=== PATIENT | male | born 1950 | race Caucasian/White ===

== ENCOUNTER 2016-11-22 11:12 | Emergency (ER) | payer OTHER ==
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
[2016-11-22 11:25] VITALS: RESP 18; TEMP 98.2
[2016-11-22 12:46] VITALS: PULSE 87
[2016-11-22 15:06] VITALS: BP 139/89; O2SAT 94
== END 2016-11-22 15:07 | disposition home or self-care (01) ==
LOC: EDUNIT#
PROC: 0HQ1XZZ Repair Face Skin, External Approach (ICD-10-PCS; principal; 2016-11-22)
DX: S02.40EA Zygomatic fracture, right side, initial encounter for closed fracture (principal); S02.401A Maxillary fracture, unspecified side, initial encounter for closed fracture; S02.31XA Fracture of orbital floor, right side, initial encounter for closed fracture; F17.200 Nicotine dependence, unspecified, uncomplicated; S62.632A Displaced fracture of distal phalanx of right middle finger, initial encounter for closed fracture; S01.111A Laceration without foreign body of right eyelid and periocular area, initial encounter; V19.40XA Pedal cycle driver injured in collision with unspecified motor vehicles in traffic accident, initial encounter; Y92.410 Unspecified street and highway as the place of occurrence of the external cause; Y99.8 Other external cause status; Y93.55 Activity, bike riding
CPT/HCPCS: 12011; 70450; 72125; 73030; 73130; 99285; L3908; L3925

== ENCOUNTER 2016-11-28 18:55 | Inpatient (IN) | payer OTHER, MEDICAID ==
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
[2016-11-28 19:22] LABS: % IMMATURE GRANULYOCYTES 0.3 % (0.0-1.1); ABSOLUTE IMMATURE GRANULOCYTES 0.02 10^3/uL (0.00-0.10); ADD DIFF? NO; ADD MORPH? NO; ADD SCAN? NO; ATYPICAL LYMPHOCYTE FLAG 10 (0-99); FRAGMENT RBC FLAG 0 (0-99); HEMATOCRIT 35.1 % (40.0-51.0); HEMOGLOBIN 12.2 g/dL (13.7-17.5); LEFT SHIFT FLG 0 (0-99); LIPEMIA HEMOLYSIS FLAG 90 (0-99); MEAN CELL HEMOGLOBIN 31.3 pg (27.9-34.1); MEAN CELL HEMOGLOBIN CONCENTR. 34.8 g/dL (32.4-36.7); MEAN PLATELET VOLUME 9.1 fL (8.7-11.7); PLATELET CLUMPS FLAG 0 (0-99); PLATELET COUNT 173 10^3/uL (150-400); RED CELL DISTRIBUTION WIDTH 13.6 % (11.5-15.2)
[2016-11-28 19:33] LABS: ANION GAP 10 mEq/L (8-16); CALCIUM 9.2 mg/dL (8.5-10.4); CARBON DIOXIDE 22 mEq/l (22-31); CHLORIDE 108 mEq/L (97-110); CREATININE 0.9 mg/dL (0.7-1.3); ETHANOL SERUM < 10 mg/dL (0-10); GLOMERULAR FILTRATION RATE > 60; GLUCOSE 105 mg/dL (70-100); POTASSIUM 3.9 mEq/L (3.5-5.2); SODIUM 140 mEq/L (134-144)
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
[2016-11-28] MEDS ORDERED: D5W 1/2 NS 1,000 ML IV SCH (22:30)
[2016-11-28] MEDS ORDERED: DIAZEPAM 5 MG TAB PO PRN (22:30)
[2016-11-28] MEDS ORDERED: ONDANSETRON 4 MG/2 ML VIAL IVP PRN (22:30)
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
[2016-11-28] MEDS ORDERED: GABAPENTIN 300 MG CAP PO PRN (22:41)
[2016-11-28] MEDS: METHOCARBAMOL 750 MG TAB PO PRN (22:47)
[2016-11-28] MEDS: D5W 1/2 NS 1,000 ML IV SCH (22:51)
[2016-11-28] MEDS: GABAPENTIN 300 MG CAP PO PRN (22:54)
[2016-11-29] MEDS: HYDROmorphONE/DILAUDID 1 MG/ML SYR IVP PRN ×3 (00:17→04:09)
[2016-11-29] MEDS: oxyCODONE IR 5 MG TAB PO PRN ×2 (01:30→05:56)
[2016-11-29 05:50] LABS: % IMMATURE GRANULYOCYTES 0.3 % (0.0-1.1); ABSOLUTE IMMATURE GRANULOCYTES 0.02 10^3/uL (0.00-0.10); ADD DIFF? NO; ADD MORPH? NO; ADD SCAN? NO; ATYPICAL LYMPHOCYTE FLAG 20 (0-99); FRAGMENT RBC FLAG 0 (0-99); HEMATOCRIT 34.2 % (40.0-51.0); HEMOGLOBIN 11.7 g/dL (13.7-17.5); LEFT SHIFT FLG 0 (0-99); LIPEMIA HEMOLYSIS FLAG 90 (0-99); MEAN CELL HEMOGLOBIN 31.3 pg (27.9-34.1); MEAN CELL HEMOGLOBIN CONCENTR. 34.2 g/dL (32.4-36.7); MEAN CELL VOLUME 91.4 fL (81.5-99.8); MEAN PLATELET VOLUME 9.1 fL (8.7-11.7); PLATELET CLUMPS FLAG 0 (0-99); PLATELET COUNT 162 10^3/uL (150-400); RED BLOOD CELL COUNT 3.74 10^6/uL (4.40-6.38); RED CELL DISTRIBUTION WIDTH 13.5 % (11.5-15.2)
[2016-11-29] MEDS: GABAPENTIN 300 MG CAP PO PRN (05:56)
[2016-11-29] MEDS: METHOCARBAMOL 750 MG TAB PO PRN (05:56)
[2016-11-29 05:59] LABS: INR 1.03 (0.83-1.16); PROTIME(PATIENT) 13.4 SEC (12.0-15.0)
[2016-11-29 06:00] LABS: APTT 25.8 SEC (23.0-38.0)
[2016-11-29] MEDS ORDERED: VODKA 50 ML BOTTLE PO PRN (06:15)
[2016-11-29 06:25] LABS: ANION GAP 10 mEq/L (8-16); CALCIUM 8.1 mg/dL (8.5-10.4); CARBON DIOXIDE 22 mEq/l (22-31); CHLORIDE 109 mEq/L (97-110); CREATININE 0.8 mg/dL (0.7-1.3); GLOMERULAR FILTRATION RATE > 60; GLUCOSE 115 mg/dL (70-100); POTASSIUM 3.5 mEq/L (3.5-5.2); SODIUM 141 mEq/L (134-144)
[2016-11-29] MEDS ORDERED: NICOTINE 21 MG/24 HR PATCH TD PRN (06:25)
[2016-11-29] MEDS ORDERED: THIAMINE HCL 500 MG in NS 100 ML IV ONE (06:25)
[2016-11-29] MEDS ORDERED: diphenhydrAMINE 25 MG CAP PO PRN (06:25)
[2016-11-29] MEDS ORDERED: LORazepam 2 MG/ML INJ IVP ONE ×3 (06:30→17:15)
[2016-11-29] MEDS ORDERED: LORazepam 1 MG TAB PO ONE (06:30)
[2016-11-29] MEDS: LORazepam 2 MG/ML INJ IVP PRN ×3 (08:18→15:32)
[2016-11-29] MEDS ORDERED: ALTEPLASE 2 MG VIAL IVP PRN (10:10)
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
[2016-11-29] MEDS: D5W 1/2 NS 1,000 ML IV SCH (14:04)
[2016-11-29] MEDS: DEXMEDETOMIDINE HCL 400 MCG in NS 100 ML IV SCH ×2 (14:59→20:06)
[2016-11-29] MEDS: IPRATROPIUM/ALBUTEROL 3 ML DEYVIAL IH SCH ×2 (16:52→21:43)
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
[2016-11-30] MEDS: D5W 1/2 NS 1,000 ML IV SCH ×2 (01:20→17:21)
[2016-11-30] MEDS: DEXMEDETOMIDINE HCL 400 MCG in NS 100 ML IV SCH ×4 (03:33→20:45)
[2016-11-30] MEDS: LORazepam 2 MG/ML INJ IVP PRN ×3 (03:55→18:43)
[2016-11-30 05:51] LABS: % IMMATURE GRANULYOCYTES 0.5 % (0.0-1.1); ABSOLUTE IMMATURE GRANULOCYTES 0.03 10^3/uL (0.00-0.10); ADD DIFF? NO; ADD MORPH? NO; ADD SCAN? NO; ATYPICAL LYMPHOCYTE FLAG 0 (0-99); FRAGMENT RBC FLAG 0 (0-99); HEMATOCRIT 33.3 % (40.0-51.0); HEMOGLOBIN 11.7 g/dL (13.7-17.5); LEFT SHIFT FLG 40 (0-99); LIPEMIA HEMOLYSIS FLAG 90 (0-99); MEAN CELL HEMOGLOBIN CONCENTR. 35.1 g/dL (32.4-36.7); MEAN CELL VOLUME 88.3 fL (81.5-99.8); MEAN PLATELET VOLUME 9.6 fL (8.7-11.7); PLATELET CLUMPS FLAG 20 (0-99); PLATELET COUNT 117 10^3/uL (150-400); RED BLOOD CELL COUNT 3.77 10^6/uL (4.40-6.38); RED CELL DISTRIBUTION WIDTH 12.7 % (11.5-15.2)
[2016-11-30] MEDS: IPRATROPIUM/ALBUTEROL 3 ML DEYVIAL IH SCH ×4 (06:15→21:18)
[2016-11-30 06:25] LABS: ALANINE AMINOTRANSFERASE 130 IU/L (21-72); ALBUMIN 3.2 g/dL (3.5-5.0); ALKALINE PHOSPHATASE 79 IU/L (38-126); ANION GAP 11 mEq/L (8-16); ASPARTATE AMINOTRANSFERASE 110 IU/L (17-59); BILIRUBIN,TOTAL 1.5 mg/dL (0.1-1.4); BILIRUBIN-CONJUGATED 0.4 mg/dL (0.0-0.5); BILIRUBIN-UNCONJUGATED 1.1 mg/dL (0.0-1.1); CALCIUM 8.4 mg/dL (8.5-10.4); CARBON DIOXIDE 23 mEq/l (22-31); CHLORIDE 101 mEq/L (97-110); CREATININE 0.6 mg/dL (0.7-1.3); GLOMERULAR FILTRATION RATE > 60; GLUCOSE 101 mg/dL (70-100); MAGNESIUM 1.7 mg/dL (1.6-2.3); POTASSIUM 4.1 mEq/L (3.5-5.2); SODIUM 135 mEq/L (134-144); TOTAL PROTEIN 6.2 g/dL (6.3-8.2)
[2016-11-30] MEDS: PANTOPRAZOLE SODIUM 40 MG in NS 100 ML IV SCH (07:46)
--- NOTE | 2016-11-30 08:27 | TRAUMAPN ---
Subjective: heavily sedated/grunts and coughs spontaneously on Precedex for agitation Objective: Vital Signs Temp Pulse Resp BP Pulse Ox 38.2 C 83 18 149/60 H 96 11/30/16 07:29 11/30/16 07:29 11/30/16 07:29 11/30/16 07:29 11/30/16 07:29 Laboratory Results 11/30/16 05:40 11/30/16 05:40 11/29/16 11/30/16 12/01/16 05:59 05:59 05:59 Intake Total 1580 2125.4 Output Total 350 201 Balance 1230 1924.4 PT 13.4 SEC (12.0-15.0) 11/29/16 05:40 INR 1.03 (0.83-1.16) 11/29/16 05:40 - C-Spine Clearance Cervical Spine Cleared: No Physical Exam - Physical Exam General Appearance: obtunded EENT: PERRL/EOMI, other (contusions forehead/nasal) Respiratory: decreased breath sounds, rhonchi Cardiac/Chest: regular rate, rhythm Abdomen: normal bowel sounds, soft Male Genitalia: deferred Rectal: deferred Skin: warm/dry Neuro/Psych: cognition abnormalities, speech abnormalities, other (DTR's brisk and symmetrical)
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
[2016-11-30] MEDS: THIAMINE HCL 500 MG in NS 100 ML IV SCH (09:08)
[2016-11-30] MEDS ORDERED: PROTOCOL POTASSIUM 1 DOSE MISC PRN (10:11)
[2016-11-30] MEDS ORDERED: PROTOCOL K PHOSPHATE 1 DOSE IV PRN (10:11)
[2016-11-30] MEDS ORDERED: PROTOCOL CALCIUM 1 DOSE IV PRN (10:11)
[2016-11-30] MEDS ORDERED: PROTOCOL MAGNESIUM 1 DOSE IV PRN (10:11)
[2016-11-30] MEDS ORDERED: MAGNESIUM SULF 1 GM/DEXTROSE 100 ML IV ONE (10:47)
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
[2016-11-30] MEDS: ERTAPENEM 1 GM in NS 100 ML IV SCH (12:28)
[2016-11-30] MEDS: AZITHROMYCIN IV 500 MG in D5W 250 ML IV SCH (12:36)
[2016-11-30 12:41] LABS: CALCULATED OXYGEN SATURATION 97 % (92-95); O2 CONCENTRATIION 21 % (0-100)
[2016-11-30] MEDS: methylPREDNISolone SOD SUCC 40 MG/ML VIAL IVP SCH ×2 (13:17→21:26)
[2016-11-30 18:09] LABS: POTASSIUM 4.1 mEq/L (3.5-5.2)
[2016-12-01] MEDS: LORazepam 2 MG/ML INJ IVP PRN ×2 (00:36→05:58)
[2016-12-01] MEDS: DEXMEDETOMIDINE HCL 400 MCG in NS 100 ML IV SCH ×3 (02:21→20:47)
[2016-12-01 04:53] LABS: IONIZED CALCIUM 1.16 MMOL/L (1.12-1.30)
[2016-12-01 05:22] LABS: MAGNESIUM 2.1 mg/dL (1.6-2.3); POTASSIUM 3.9 mEq/L (3.5-5.2)
[2016-12-01] MEDS: methylPREDNISolone SOD SUCC 40 MG/ML VIAL IVP SCH ×2 (05:23→20:47)
[2016-12-01] MEDS: IPRATROPIUM/ALBUTEROL 3 ML DEYVIAL IH SCH ×4 (06:07→20:33)
[2016-12-01] MEDS ORDERED: POTASSIUM Cl (KCl) 50 ML IV ONE ×2 (06:26→18:41)
[2016-12-01] MEDS: D5W 1/2 NS 1,000 ML IV SCH (06:39)
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
[2016-12-01] MEDS: PANTOPRAZOLE SODIUM 40 MG in NS 100 ML IV SCH (08:20)
[2016-12-01] MEDS: THIAMINE HCL 500 MG in NS 100 ML IV SCH (08:20)
[2016-12-01] MEDS: ERTAPENEM 1 GM in NS 100 ML IV SCH (08:20)
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
[2016-12-01] MEDS: AZITHROMYCIN IV 500 MG in D5W 250 ML IV SCH (11:43)
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
[2016-12-01] MEDS ORDERED: BENZOCAINE UNIT DOSE SPRAY HURRICAINE MM ONE (16:08)
[2016-12-01 18:18] LABS: POTASSIUM 3.9 mEq/L (3.5-5.2)
[2016-12-01] MEDS: oxyCODONE IR 5 MG TAB PO PRN (22:36)
[2016-12-02] MEDS: D5W 1/2 NS 1,000 ML IV SCH ×2 (03:29→17:42)
[2016-12-02 04:52] LABS: IONIZED CALCIUM 1.15 MMOL/L (1.12-1.30)
[2016-12-02 04:54] LABS: % IMMATURE GRANULYOCYTES 0.3 % (0.0-1.1); ABSOLUTE IMMATURE GRANULOCYTES 0.03 10^3/uL (0.00-0.10); ADD DIFF? NO; ADD MORPH? NO; ADD SCAN? YES; ATYPICAL LYMPHOCYTE FLAG 0 (0-99); FRAGMENT RBC FLAG 0 (0-99); HEMATOCRIT 32.4 % (40.0-51.0); LIPEMIA HEMOLYSIS FLAG 90 (0-99); MEAN CELL HEMOGLOBIN 30.8 pg (27.9-34.1); MEAN CELL HEMOGLOBIN CONCENTR. 34.9 g/dL (32.4-36.7); MEAN CELL VOLUME 88.3 fL (81.5-99.8); MEAN PLATELET VOLUME 9.9 fL (8.7-11.7); PLATELET CLUMPS FLAG 40 (0-99); PLATELET COUNT 162 10^3/uL (150-400); RED BLOOD CELL COUNT 3.67 10^6/uL (4.40-6.38); RED CELL DISTRIBUTION WIDTH 13.4 % (11.5-15.2)
[2016-12-02 04:55] LABS: LEFT SHIFT FLG 300 (0-99)
[2016-12-02 04:56] LABS: HEMOGLOBIN 11.3 g/dL (13.7-17.5)
[2016-12-02 05:16] LABS: ALANINE AMINOTRANSFERASE 97 IU/L (21-72); ALBUMIN 2.9 g/dL (3.5-5.0); ALKALINE PHOSPHATASE 72 IU/L (38-126); ANION GAP 11 mEq/L (8-16); ASPARTATE AMINOTRANSFERASE 65 IU/L (17-59); BILIRUBIN,TOTAL 0.9 mg/dL (0.1-1.4); CALCIUM 8.7 mg/dL (8.5-10.4); CARBON DIOXIDE 21 mEq/l (22-31); CHLORIDE 110 mEq/L (97-110); CREATININE 0.7 mg/dL (0.7-1.3); GLOMERULAR FILTRATION RATE > 60; GLUCOSE 148 mg/dL (70-100); MAGNESIUM 2.1 mg/dL (1.6-2.3); POTASSIUM 4.5 mEq/L (3.5-5.2); SODIUM 142 mEq/L (134-144); TOTAL PROTEIN 5.8 g/dL (6.3-8.2)
[2016-12-02] MEDS: IPRATROPIUM/ALBUTEROL 3 ML DEYVIAL IH SCH ×4 (05:29→21:08)
[2016-12-02 05:40] LABS: SCAN NEGATIVE
[2016-12-02] MEDS: AZITHROMYCIN IV 500 MG in D5W 250 ML IV SCH (07:51)
[2016-12-02] MEDS: methylPREDNISolone SOD SUCC 40 MG/ML VIAL IVP SCH (07:51)
[2016-12-02] MEDS: NICOTINE 21 MG/24 HR PATCH TD SCH (07:51)
[2016-12-02] MEDS: THIAMINE HCL 100 MG TAB PO SCH (07:52)
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
[2016-12-02] MEDS: PANTOPRAZOLE SODIUM 40 MG in NS 100 ML IV SCH (09:02)
[2016-12-02] MEDS: ERTAPENEM 1 GM in NS 100 ML IV SCH (09:02)
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
[2016-12-02] MEDS: oxyCODONE IR 5 MG TAB PO PRN (12:29)
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
[2016-12-02] MEDS: HYDROmorphONE/DILAUDID 1 MG/ML SYR IVP PRN ×3 (16:17→23:41)
[2016-12-02] MEDS: METHOCARBAMOL 750 MG TAB PO PRN (17:43)
[2016-12-02] MEDS: LORazepam 1 MG TAB PO PRN ×2 (18:41→23:22)
[2016-12-02] MEDS: FAMOTIDINE 20 MG TAB PO SCH (20:58)
[2016-12-03] MEDS: HYDROmorphONE/DILAUDID 1 MG/ML SYR IVP PRN ×2 (01:11→10:31)
[2016-12-03] MEDS: METHOCARBAMOL 750 MG TAB PO PRN ×3 (01:15→19:34)
[2016-12-03] MEDS: GABAPENTIN 300 MG CAP PO PRN ×3 (01:15→19:34)
[2016-12-03] MEDS: IPRATROPIUM/ALBUTEROL 3 ML DEYVIAL IH SCH ×4 (05:25→21:07)
[2016-12-03 05:40] LABS: HEMATOCRIT 30.1 % (40.0-51.0); HEMOGLOBIN 10.4 g/dL (13.7-17.5); MEAN CELL HEMOGLOBIN CONCENTR. 34.6 g/dL (32.4-36.7); MEAN CELL VOLUME 89.6 fL (81.5-99.8); RED BLOOD CELL COUNT 3.36 10^6/uL (4.40-6.38); RED CELL DISTRIBUTION WIDTH 13.6 % (11.5-15.2)
[2016-12-03 06:02] LABS: ANION GAP 8 mEq/L (8-16); CALCIUM 8.2 mg/dL (8.5-10.4); CARBON DIOXIDE 22 mEq/l (22-31); CHLORIDE 109 mEq/L (97-110); CREATININE 0.6 mg/dL (0.7-1.3); GLOMERULAR FILTRATION RATE > 60; GLUCOSE 137 mg/dL (70-100); POTASSIUM 3.8 mEq/L (3.5-5.2); SODIUM 139 mEq/L (134-144)
[2016-12-03] MEDS: oxyCODONE IR 5 MG TAB PO PRN ×3 (06:12→16:27)
[2016-12-03] MEDS ORDERED: POTASSIUM CL 10 MEQ TAB PO ONE ×2 (07:42→10:07)
[2016-12-03] MEDS ORDERED: predniSONE 20 MG TAB PO SCH (09:00)
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
[2016-12-03] MEDS: THIAMINE HCL 100 MG TAB PO SCH (10:34)
[2016-12-03] MEDS: FAMOTIDINE 20 MG TAB PO SCH ×2 (10:35→19:35)
[2016-12-03] MEDS: AZITHROMYCIN 250 MG TAB PO SCH (10:35)
[2016-12-03] MEDS: NICOTINE 21 MG/24 HR PATCH TD SCH (10:53)
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
[2016-12-03] MEDS: LORazepam 1 MG TAB PO PRN (19:35)
[2016-12-04] MEDS: LORazepam 1 MG TAB PO PRN ×3 (03:15→22:50)
[2016-12-04] MEDS: oxyCODONE IR 5 MG TAB PO PRN ×4 (03:15→21:20)
[2016-12-04 05:32] LABS: IONIZED CALCIUM 1.18 MMOL/L (1.12-1.30)
[2016-12-04 05:33] LABS: % IMMATURE GRANULYOCYTES 1.1 % (0.0-1.1); ADD DIFF? NO; ADD MORPH? NO; ADD SCAN? NO; ATYPICAL LYMPHOCYTE FLAG 10 (0-99); FRAGMENT RBC FLAG 0 (0-99); HEMATOCRIT 33.4 % (40.0-51.0); HEMOGLOBIN 11.4 g/dL (13.7-17.5); LEFT SHIFT FLG 30 (0-99); LIPEMIA HEMOLYSIS FLAG 90 (0-99); MEAN CELL HEMOGLOBIN 30.6 pg (27.9-34.1); MEAN CELL HEMOGLOBIN CONCENTR. 34.1 g/dL (32.4-36.7); MEAN CELL VOLUME 89.8 fL (81.5-99.8); MEAN PLATELET VOLUME 9.6 fL (8.7-11.7); PLATELET CLUMPS FLAG 20 (0-99); PLATELET COUNT 176 10^3/uL (150-400); RED BLOOD CELL COUNT 3.72 10^6/uL (4.40-6.38); RED CELL DISTRIBUTION WIDTH 13.6 % (11.5-15.2)
[2016-12-04 05:45] LABS: ALANINE AMINOTRANSFERASE 101 IU/L (21-72); ALKALINE PHOSPHATASE 82 IU/L (38-126); ANION GAP 9 mEq/L (8-16); ASPARTATE AMINOTRANSFERASE 69 IU/L (17-59); BILIRUBIN,TOTAL 0.7 mg/dL (0.1-1.4); BILIRUBIN-CONJUGATED 0.4 mg/dL (0.0-0.5); BILIRUBIN-UNCONJUGATED 0.3 mg/dL (0.0-1.1); CALCIUM 8.6 mg/dL (8.5-10.4); CARBON DIOXIDE 24 mEq/l (22-31); CHLORIDE 108 mEq/L (97-110); CREATININE 0.6 mg/dL (0.7-1.3); GLOMERULAR FILTRATION RATE > 60; GLUCOSE 76 mg/dL (70-100); POTASSIUM 4.1 mEq/L (3.5-5.2); SODIUM 141 mEq/L (134-144)
[2016-12-04] MEDS: IPRATROPIUM/ALBUTEROL 3 ML DEYVIAL IH SCH ×4 (05:53→20:09)
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
[2016-12-04] MEDS: predniSONE 20 MG TAB PO SCH (07:17)
[2016-12-04] MEDS: THIAMINE HCL 100 MG TAB PO SCH (07:17)
[2016-12-04] MEDS: METHOCARBAMOL 750 MG TAB PO PRN ×2 (07:17→20:29)
[2016-12-04] MEDS: AZITHROMYCIN 250 MG TAB PO SCH (07:18)
[2016-12-04] MEDS: FAMOTIDINE 20 MG TAB PO SCH ×2 (07:18→20:29)
[2016-12-04] MEDS: GABAPENTIN 300 MG CAP PO PRN ×2 (07:18→20:29)
[2016-12-04] MEDS: NICOTINE 21 MG/24 HR PATCH TD SCH (07:18)
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
[2016-12-04 09:24] LABS: MAGNESIUM 2.1 mg/dL (1.6-2.3)
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
[2016-12-04] MEDS: VODKA 50 ML BOTTLE PO SCH (20:33)
[2016-12-05] MEDS: oxyCODONE IR 5 MG TAB PO PRN ×4 (01:50→20:02)
[2016-12-05] MEDS: IPRATROPIUM/ALBUTEROL 3 ML DEYVIAL IH SCH (05:44)
[2016-12-05] MEDS: GABAPENTIN 300 MG CAP PO PRN ×2 (07:44→16:18)
[2016-12-05] MEDS: NICOTINE 21 MG/24 HR PATCH TD SCH (07:44)
[2016-12-05] MEDS: METHOCARBAMOL 750 MG TAB PO PRN ×2 (07:44→16:14)
[2016-12-05] MEDS: predniSONE 20 MG TAB PO SCH (07:44)
[2016-12-05] MEDS: THIAMINE HCL 100 MG TAB PO SCH (07:45)
[2016-12-05] MEDS: FAMOTIDINE 20 MG TAB PO SCH ×2 (07:45→20:03)
[2016-12-05] MEDS: AZITHROMYCIN 250 MG TAB PO SCH (07:45)
[2016-12-05] MEDS: VODKA 50 ML BOTTLE PO SCH (08:03)
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
[2016-12-05] MEDS: LORazepam 1 MG TAB PO PRN ×2 (13:24→20:02)
[2016-12-06] MEDS: LORazepam 1 MG TAB PO PRN ×2 (00:55→12:33)
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
[2016-12-06] MEDS: predniSONE 20 MG TAB PO SCH (08:18)
[2016-12-06] MEDS: NICOTINE 21 MG/24 HR PATCH TD SCH (08:18)
[2016-12-06] MEDS: THIAMINE HCL 100 MG TAB PO SCH (08:18)
[2016-12-06] MEDS: FAMOTIDINE 20 MG TAB PO SCH ×2 (08:18→22:12)
[2016-12-06] MEDS: METHOCARBAMOL 750 MG TAB PO PRN ×2 (08:19→22:12)
[2016-12-06] MEDS: oxyCODONE IR 5 MG TAB PO PRN ×4 (08:19→22:12)
[2016-12-06 09:05] LABS: ANION GAP 10 mEq/L (8-16); CALCIUM 8.6 mg/dL (8.5-10.4); CARBON DIOXIDE 25 mEq/l (22-31); CHLORIDE 106 mEq/L (97-110); CREATININE 0.7 mg/dL (0.7-1.3); GLOMERULAR FILTRATION RATE > 60; GLUCOSE 83 mg/dL (70-100); SODIUM 141 mEq/L (134-144)
[2016-12-06] MEDS: GABAPENTIN 300 MG CAP PO PRN ×2 (12:33→22:11)
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
[2016-12-07] MEDS: oxyCODONE IR 5 MG TAB PO PRN ×4 (04:40→21:05)
[2016-12-07] MEDS: LORazepam 1 MG TAB PO PRN ×4 (04:40→21:04)
[2016-12-07] MEDS: predniSONE 20 MG TAB PO SCH (09:31)
[2016-12-07] MEDS: FAMOTIDINE 20 MG TAB PO SCH ×2 (09:31→21:05)
[2016-12-07] MEDS: NICOTINE 21 MG/24 HR PATCH TD SCH (09:31)
[2016-12-07] MEDS: THIAMINE HCL 100 MG TAB PO SCH (09:32)
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
[2016-12-07] MEDS: VODKA 50 ML BOTTLE PO SCH ×2 (14:14→21:05)
[2016-12-07] MEDS: METHOCARBAMOL 750 MG TAB PO PRN (17:22)
[2016-12-08] MEDS ORDERED: ACETAMINOPHEN/CODEINE 300/30MG TAB PO ONE (00:37)
[2016-12-08] MEDS ORDERED: CODEINE SULF 30 MG TAB PO ONE (02:57)
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
[2016-12-08] MEDS: THIAMINE HCL 100 MG TAB PO SCH (11:04)
[2016-12-08] MEDS: FAMOTIDINE 20 MG TAB PO SCH ×3 (11:04→20:35)
[2016-12-08] MEDS: predniSONE 20 MG TAB PO SCH (11:04)
[2016-12-08] MEDS: NICOTINE 21 MG/24 HR PATCH TD SCH (11:05)
[2016-12-08] MEDS: oxyCODONE IR 5 MG TAB PO PRN ×3 (11:49→23:13)
[2016-12-08] MEDS: METHOCARBAMOL 750 MG TAB PO PRN (11:50)
[2016-12-08] MEDS: VODKA 50 ML BOTTLE PO SCH ×2 (11:50→20:31)
[2016-12-08] MEDS: GABAPENTIN 300 MG CAP PO PRN (14:51)
[2016-12-08] MEDS: LORazepam 1 MG TAB PO PRN ×2 (14:51→19:35)
[2016-12-09 00:15] VITALS: RESP 16
[2016-12-09] MEDS: GABAPENTIN 300 MG CAP PO PRN (03:39)
[2016-12-09] MEDS: oxyCODONE IR 5 MG TAB PO PRN ×3 (03:40→12:06)
[2016-12-09] MEDS: predniSONE 20 MG TAB PO SCH (08:09)
[2016-12-09] MEDS: THIAMINE HCL 100 MG TAB PO SCH (08:09)
[2016-12-09] MEDS: VODKA 50 ML BOTTLE PO SCH (08:09)
[2016-12-09] MEDS: METHOCARBAMOL 750 MG TAB PO PRN (08:10)
[2016-12-09] MEDS: NICOTINE 21 MG/24 HR PATCH TD SCH (08:10)
[2016-12-09] MEDS: FAMOTIDINE 20 MG TAB PO SCH (08:11)
[2016-12-09 08:18] VITALS: BP 110/68; PULSE 83; TEMP 98.3; O2SAT 94
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
[2016-12-09] MEDS: LORazepam 1 MG TAB PO PRN (10:04)
--- NOTE | 2016-12-09 10:13 | PDIAF ---
- Diagnosis Diagnosis: C 5 vertebral fx, spinous body fx, alcohol use, encephalopathy Code Status: Full Code - Medication Management Discharge Medications: Medications to Continue on Transfer Famotidine [Pepcid 20 MG (*)] 20 mg PO BID tab 12/09/16 [Last Taken Unknown] Gabapentin [Neurontin 300 MG (*)] 600 mg PO BID PRN #0 cap 12/09/16 [Last Taken Unknown] LORazepam [Ativan (*)] 1 mg PO Q4HRS PRN #0 tab 12/09/16 [Last Taken Unknown] Methocarbamol [Robaxin 750 mg (*)] 750 mg PO BID PRN #0 tab 12/09/16 [Last Taken Unknown] Nicotine [Nicoderm Cq 21 mg (*)] 21 mg TD DAILY patch 12/09/16 [Last Taken Unknown] Thiamine HCl [Vitamin B-1] 100 mg PO DAILY tab 12/09/16 [Last Taken Unknown] oxyCODONE IR [Oxycodone Ir (*)] 5 mg PO Q4HRS PRN #0 tab 12/09/16 [Last Taken Unknown] Discharge Medications: Refer to the Discharge Home Medication list for PRN reason. PICC Care - Routine: N/A - Orders Services needed: Physical Therapy, Occupational Therapy Diet Recommendation: no restrictions on diet Diet Texture: Regular Texture Diet, Thin Liquids, Meds Whole w/Liquids, Meds Whole in Puree Equipment: must wear hard collar at all times Additional: See Dr Alexys Diggs in the next 2-4 weeks/ he will decide how long the patient will need the hard collar. Call [phone]. If facility is able to give Ricardo vodka bid (50 ml)/ this is effective and keeps him calm. - Follow Up Care Current Providers and Referrals: Patient,NotPresent [Unknown] - As per Instructions Ric Diggs MD [Medical Doctor] -
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
== END 2016-12-09 13:12 | DRG 551 ==
LOC: EDUNIT# → F2N 21:47 → OBSVTOIN 22:30 → F3N 12-05 15:15
PROVIDERS: ADMIT Surgery; ATTEND Internal Medicine
PROC: 02HV33Z Insertion of Infusion Device into Superior Vena Cava, Percutaneous Approach (ICD-10-PCS; principal; 2016-11-29)
DX: S12.401A Unspecified nondisplaced fracture of fifth cervical vertebra, initial encounter for closed fracture (principal); S12.301A Unspecified nondisplaced fracture of fourth cervical vertebra, initial encounter for closed fracture; S06.0X9A Concussion with loss of consciousness of unspecified duration, initial encounter; S10.83XA Contusion of other specified part of neck, initial encounter; V18.0XXA Pedal cycle driver injured in noncollision transport accident in nontraffic accident, initial encounter; Y93.55 Activity, bike riding; Y92.410 Unspecified street and highway as the place of occurrence of the external cause; G92 Toxic encephalopathy; F10.231 Alcohol dependence with withdrawal delirium; R06.81 Apnea, not elsewhere classified; J44.0 Chronic obstructive pulmonary disease with (acute) lower respiratory infection; J20.9 Acute bronchitis, unspecified; R13.10 Dysphagia, unspecified; R45.87 Impulsiveness; G89.29 Other chronic pain; D53.9 Nutritional anemia, unspecified; F17.210 Nicotine dependence, cigarettes, uncomplicated; Z59.0 Homelessness
CPT/HCPCS: 92507-GN; 92523-GN; 92526-GN; 92610-GN; 96374; 97116-GP; 97162-GP; 97165-GO; 97530-GO; 97530-GP; 97535-GO; C1751; G0480; G8978-GP-CK; G8979-GP-CI; G8987-GO-CK; G8988-GO-CI; G8996-GN-CL; G8997-GN-CI; G8998-GN-CH; G9168-GN-CL; G9169-GN-CJ; J0456; J1170; J1335; J2060; J2997; J3411; J3475; L0172

== ENCOUNTER → 2017-01-12 | Outpatient (CLI) | payer OTHER, MEDICAID | LOC: FIMAGING 12:05 | PROVIDERS: ATTEND Nurse Practitioner | DX: S12.400D Unspecified displaced fracture of fifth cervical vertebra, subsequent encounter for fracture with routine healing (principal) ==

== ENCOUNTER → 2017-03-20 | Outpatient (CLI) | payer OTHER, MEDICAID | LOC: FIMAGING 10:41 → EDSTATUS 10:43 | PROVIDERS: ATTEND Nurse Practitioner | DX: S12.400D Unspecified displaced fracture of fifth cervical vertebra, subsequent encounter for fracture with routine healing (principal) ==

== ENCOUNTER → 2017-06-27 | Outpatient (CLI) | payer OTHER, MEDICAID | LOC: FIMAGING 11:05 → EDSTATUS 11:05 → FLAB 11:05 | PROVIDERS: ATTEND Physician Assistant | DX: S12.9XXD Fracture of neck, unspecified, subsequent encounter (principal); M50.321 Other cervical disc degeneration at C4-C5 level; M46.92 Unspecified inflammatory spondylopathy, cervical region ==